=== PATIENT | male | born 1985 | race Caucasian/White ===

== ENCOUNTER 2017-10-23 08:24 | Outpatient (CLI) ==
--- NOTE | 2017-10-23 10:34 | DI ---
EXAM: Two views of the chest. History: Cough. Findings: Heart size is normal. No focal consolidation. No appreciable pleural fluid and no pneumo thorax. No acute osseous abnormalities. Old healed fracture deformity of the right clavicle. Impression: No acute cardiopulmonary process
--- NOTE | 2017-10-23 10:35 | DI ---
EXAM: Three views of the right shoulder. History: Right shoulder pain. Findings: No acute fracture or dislocation. Old healed fracture deformity of the right clavicle. J oint spaces are preserved. No abnormal calcifications or radiopaque foreign bodies. Impression: No acute osseous abnormality.
== END 2017-10-23 08:25 | disposition home or self-care (01) ==
LOC: RAD 08:24
PROVIDERS: ATTEND Emergency Medicine
DX: M25.511 Pain in right shoulder (principal); R05 Cough; Z00.00 Encounter for general adult medical examination without abnormal findings
CPT/HCPCS: 36415; 80053; 85025